=== PATIENT | male | born 1965 | race Two or more races ===

== ENCOUNTER 2023-09-26 06:55 | Day surgery (SDC) | payer BC ==
[~2023-09-26] VITALS: Ht 182.9 cm; Wt 72.6 kg
[~2023-09-26 06:55] MED LIST: ASPI-543 PO; ATOR40TA52 PO; CARV6.2551 PO; CLOP75TA28 PO; GABA-1308 PO; METF-370 PO; ROPI0.5T26 PO; SERT-206 PO
[2023-09-26] MEDS: fentaNYL CITRATE 100 MCG/2 ML VL IV ONE (08:00)
[2023-09-26] MEDS: LIDOCAINE VISCOUS 2% 15ML UD PO ONE (08:00)
[2023-09-26] MEDS: FLUMAZENIL 0.1 MG/ML INJ 10ML MDV IV ONE (08:00)
[2023-09-26] MEDS: MIDAZOLAM HCL 5 MG/ML-1ML VIAL IV ONE (08:00)
[2023-09-26] MEDS: NALOXONE HCL 0.4 MG/ML VIAL IV ONE (08:00)
[2023-09-26] MEDS: MIDAZOLAM HCL 2MG/2ML 2ml VIAL (1mg/ml) ONE (08:38)
== END 2023-09-26 10:12 | disposition home or self-care (01) ==
LOC: CATH 06:55
PROVIDERS: ATTEND Internal Medicine
DX: I63.9 Cerebral infarction, unspecified (principal); I08.3 Combined rheumatic disorders of mitral, aortic and tricuspid valves; I10 Essential (primary) hypertension; E11.9 Type 2 diabetes mellitus without complications; G47.33 Obstructive sleep apnea (adult) (pediatric); Z88.0 Allergy status to penicillin; Z79.82 Long term (current) use of aspirin; Z79.01 Long term (current) use of anticoagulants; Z79.84 Long term (current) use of oral hypoglycemic drugs; Z79.899 Other long term (current) drug therapy; Z83.3 Family history of diabetes mellitus; Z87.891 Personal history of nicotine dependence
CPT/HCPCS: 93312; 93325; J2250; J3010; J7030; 99152